=== PATIENT | female | born 1980 | race African-American/Black ===

== ENCOUNTER 2024-07-10 22:08 | Emergency (ER) | payer OTHER ==
[~2024-07-10] VITALS: Ht 162.6 cm; Wt 82.6 kg
[2024-07-10 22:23] VITALS: O2SAT 98
[2024-07-10] MEDS: ACETAMINOPHEN 500MG TABLET PO ONE (23:01)
[2024-07-10 23:17] LABS: EOSINOPHILS % 1.5 % (0.0-5.0); HEMATOCRIT. 38.2 % (36.0-48.0); HEMOGLOBIN. 12.9 g/dL (12.0-16.0); LYMPHOCYTES % 34.9 % (20.0-50.0); MEAN CORPUSCULAR HEMOGLOBIN 29.2 pg (28.0-32.0); MEAN CORPUSCULAR HGB CONC 33.9 g/dL (31.0-37.0); MEAN CORPUSCULAR VOLUME 86.3 fL (81.0-99.0); MEAN PLATELET VOLUME 8.5 fl (7.4-10.4); MONOCYTES % 6.4 % (2.0-8.0); NEUTROPHILS % 55.2 % (40.0-76.0); PLATELET 244 x1000/uL (130-400); RED BLOOD CELL COUNT 4.42 mill/uL (4.2-5.4); RED CELL DISTRIBUTION WIDTH 14.6 % (11.6-14.6); WHITE BLOOD COUNT 10.2 x1000/uL (4.5-11.0)
[2024-07-10 23:18] LABS: CHLORIDE 102 mEq/L (98-107); POTASSIUM 3.8 mEq/L (3.5-5.1); SODIUM 140 mEq/L (136-145)
[2024-07-10 23:19] LABS: CARBON DIOXIDE 29 mEq/L (21-32)
[2024-07-10 23:24] LABS: CREATININE 0.8 mg/dL (0.6-1.0); GLUCOSE 125 mg/dL (70-105); UREA NITROGEN BLOOD 8 mg/dL (9-23)
[2024-07-10 23:38] LABS: HCG SCREEN NEGATIVE
[2024-07-11 01:11] VITALS: BP 122/73; PULSE 66; RESP 12; TEMP 36.6; O2SAT 100
== END 2024-07-11 01:25 | disposition home or self-care (01) ==
LOC: ER 22:08
DX: R58 Hemorrhage, not elsewhere classified (principal); M79.604 Pain in right leg; Z88.5 Allergy status to narcotic agent; Z90.49 Acquired absence of other specified parts of digestive tract; Z98.51 Tubal ligation status
CPT/HCPCS: 36415; 80048; 84703; 85025; 93971; 99284